=== PATIENT | male | born 1960 | race Caucasian/White ===

== ENCOUNTER 2017-06-01 06:54 | Emergency (ER) | payer OTHER ==
[2017-06-01 07:47] LABS: Absolute Lymphocytes (CBC) 1.2 K/uL (0.7-4.9); Absolute Monocytes 0.3 K/uL (0.1-1.3); Absolute Neutrophil 3.4 K/uL (1.8-8.0); Basophils % 0.6 % (0-1.3); Bicarbonate 27 mEq/L (21-31); Eosinophils % 2.1 % (0-4.4); Glucose Level 132 mg/dL (65-120); Hematocrit 41.9 % (39.6-49.0); Lymphocytes % 23.5 % (15.3-44.8); MCH 31.5 pg (27.0-35.0); MCV 90.9 fL (80-100); MPV 8.6 fL (7.6-11.3); Monocytes % 5.9 % (3.3-12.3); Potassium 4.1 mEq/L (3.6-5.0); Sodium Level 138 mEq/L (135-145)
[2017-06-01 07:50] LABS: BUN Blood Urea Nitrogen 14 mg/dL (6-20); Creatine Phosphokinase 57 IU/L (22-269); Magnesium 2.2 mg/dL (1.8-2.5)
[2017-06-01 07:58] LABS: CKMB Creatine Kinase MB 2.3 ng/ml (0.3-4.0)
[2017-06-01] MEDS ORDERED: NA CHLORIDE 0.9% 1,000 ML ONE (08:23)
--- NOTE | 2017-06-01 08:37 | RAD REPORT ---
EXAM DESCRIPTION: CT - Head Brain Wo Cont - 06/01/2017 7:32 am CLINICAL HISTORY: Headache, hypertension COMPARISON: None. TECHNIQUE: All CT scans are performed using dose optimization technique as appropriate and may inclu de automated exposure control or mA/KV adjustment according to patient size. FINDINGS: No intracranial hemorrhage, hydrocephalus or extra-axial fluid collection.Area of gliosis is noted in the left frontal and medial right frontal lobe is probably related to prior trauma or inf arction. The paranasal sinuses and mastoids are clear. The calvarium is intact. IMPRESSION: No acute intracranial abnormality.
[2017-06-01 08:45] LABS: Urine Blood NEGATIVE (NEG); Urine Glucose NEGATIVE (NEG); Urine Protein NEGATIVE (NEG); Urine Specific Gravity <1.005 (1.005-1.030)
--- NOTE | 2017-06-01 09:15 | ER ---
Nurse's Notes [facility] Name: Erasmo Macias Age: 56 yrs Sex: Male : 1960 Arrival Date: 06/01/2017 Time: 06:57 Bed 8 Private MD: Diagnosis: Medication reaction;Weakness Presentation: 06/01 07:11 Presenting complaint: Patient states: has had numbness all over body and burning to the iw back of neck and back of head X 2 days. Transition of care: patient was not received from another setting of care. Onset of symptoms was May 30, 2017. Care prior to arrival: None. 07:11 Method Of Arrival: Ambulatory iw 07:11 Acuity: DEENA 3 iw Historical: - Allergies: 07:14 NKA; iw - Home Meds: 07:14 methotrexate sodium 2.5 mg Oral tab 1 tab once wkly [Active]; prednisone 5 mg Oral tab iw 1 tab 2 times per day [Active]; celecoxib 200 mg Oral cap 1 cap 2 times per day [Active]; doxazosin 4 mg oral tab 1 tab once daily [Active]; amlodipine 10 mg tab 1 tab once daily [Active]; Enbrel 25 mg/0.5mL (0.51) subcutaneous syrg 1 mL once wkly [Active]; Seroquel 100 mg Oral tab daily [Active]; folic acid 1 mg Oral tab 1 tab once daily [Active]; lisinopril 20 mg Oral tab 1 tab once daily [Active]; - PMHx: 07:14 Hypertension; Rheumatoid Arthritis; iw 07:15 PTSD; iw - PSHx: 07:14 Tonsillectomy; iw - Immunization history:: Adult Immunizations up to date. - Social history:: Smoking status: Patient/guardian denies using tobacco, Patient/guardian denies using alcohol, the patient reports quitting approximately .1 years ago. Screenin:18 Abuse screen: Denies threats or abuse. Denies injuries from another. Nutritional ch screening: No deficits noted. Tuberculosis screening: No symptoms or risk factors identified. Fall Risk None identified. Assessment: 07:18 General: Appears in no apparent distress. comfortable, Behavior is cooperative, ch appropriate for age, anxious. Pain: Denies pain. Neuro: Level of Consciousness is awake, alert, obeys commands, Oriented to person, place, time, situation, Religion Department Chair are equal bilaterally Moves all extremities. Full function Gait is steady, Speech is normal, Facial symmetry appears normal, Facial symmetry: tongue is midline, Pupils are PERRLA, Reports feeling generalized burning and tingling all over. Cardiovascular: Denies chest pain, Capillary refill < 3 seconds in bilateral fingers toes Clubbing of nail beds is absent JVD is absent Patient's skin is warm and dry. Pulses are all present. Edema is absent. Respiratory: No deficits noted. Airway is patent Respiratory effort is even, unlabored, Breath sounds are clear bilaterally. GI: No signs and/or symptoms were reported involving the gastrointestinal system. : No signs and/or symptoms were reported regarding the genitourinary system. Derm: Skin is pink, warm \T\ dry. Musculoskeletal: No signs and/or symptoms reported regarding the musculoskeletal system. Circulation, motion, and sensation intact. 07:29 Reassessment: Patient appears in no apparent distress at this time. Patient and/or ch family updated on plan of care and expected duration. Pain level reassessed. Patient is alert, oriented x 3, equal unlabored respirations, skin warm/dry/pink. 07:58 Reassessment: Patient appears in no apparent distress at this time. pt states he feels ch like something is moving in his peripheral vision, and an increase in tingling and burning since walking to the restroom. pt bp is 88/42. Darling notified, pt bed laid flatter. pt is aaox4, resps even and unlabored, no s/s of distress. pt states he has been told he has an abnormal heart beat. pt is having bigeminy that then becomes sinus lalita. 08:08 Reassessment: Patient appears in no apparent distress at this time. Patient and/or ch family updated on plan of care and expected duration. Pain level reassessed. Patient is alert, oriented x 3, equal unlabored respirations, skin warm/dry/pink. Patient states feeling better. Patient states symptoms have improved. 08:47 Reassessment: Patient appears in no apparent distress at this time. Patient and/or ch family updated on plan of care and expected duration. Pain level reassessed. Patient is alert, oriented x 3, equal unlabored respirations, skin warm/dry/pink. Patient states feeling better. Patient states symptoms have improved. Vital Signs: 07:14 BP 122 / 58; Pulse 50; Resp 18; Temp 97.5; Pulse Ox 97% on R/A; Weight 127.01 kg; iw Height 6 ft. (182.88 cm); Pain 0/10; 07:58 BP 88 / 42; Pulse 42; Resp 14; Pulse Ox 99% on R/A; Pain 0/10; ch 08:08 BP 104 / 58; Pulse 54; Resp 12; Pulse Ox 97% on R/A; ch 08:42 BP 105 / 53 LA Supine (auto/lg); Pulse 48; ch 08:45 BP 109 / 62 LA Sitting (auto/lg); Pulse 52; ch 08:48 BP 112 / 56 LA Standing (auto/lg); Pulse 64; ch 07:14 Body Mass Index 37.97 (127.01 kg, 182.88 cm) iw Vitals: 08:01 Cardiac Rhythm Assessment Sinus lalita. ch ED Course: 06:57 Patient arrived in ED. do 07:06 Darling Gaston FNP-C is PHCP. kb 07:06 Ramin Courtney MD is Attending Physician. kb 07:12 Triage completed. iw 07:14 Arm band placed on. iw 07:15 Jacqueline Monique, RN is Primary Nurse. aa1 07:18 Jackie Del Valle, RN is Primary Nurse. ch 07:18 No apparent distress. Resting quietly. ch 07:18 Patient has correct armband on for positive identification. Bed in low position. Call light in reach. Side rails up X 1. Adult w/ patient. Pulse ox on. NIBP on. Warm blanket given. 07:18 No provider procedures requiring assistance completed. ch 07:30 Inserted saline lock: 18 gauge in right antecubital area, using aseptic technique. Blood collected. 07:31 CT completed. Patient tolerated procedure well. Patient moved to CT via wheelchair. sj Patient moved back from CT. 07:31 CT Head Brain wo Cont Sent. ch 07:32 CT Head Brain wo Cont In Process Unspecified. EDMS 08:11 EKG done, by invasive cardiovascular technologist. reviewed by Darling STAUFFER. vh 09:48 IV discontinued, intact, bleeding controlled, No redness/swelling at site. Pressure iw dressing applied. Administered Medications: 08:00 Drug: NS 0.9% 1000 ml Route: IV; Rate: 1000 ml; Site: right antecubital; ch 08:50 Follow up: IV Status: Completed infusion; IV Intake: 1000ml ch Intake: 08:50 IV: 1000ml; Total: 1000ml. ch Outcome: 09:14 Discharge ordered by . lisbet 09:48 Discharged to home ambulatory, with family. iw 09:48 Condition: good 09:48 Discharge instructions given to patient, Instructed on discharge instructions, follow up and referral plans. Demonstrated understanding of instructions, follow-up care. 09:49 Patient left the ED. iw Signatures: Dispatcher [employer] EDMS Darling Gaston, FORM DRAFTER-C FORM DRAFTER-Ckb Jackie Del Valle, RN RN Jacqueline Monique RN RN Safia Zacarias Irene RN RN Sera Mclean Danielle do
--- NOTE | 2017-06-01 09:15 | EDPHYS ---
Physician Documentation [facility] Name: Erasmo Macias Age: 56 yrs Sex: Male : 1960 Arrival Date: 06/01/2017 Time: 06:57 Bed 8 Private MD: ED Physician Ramin Courtney HPI: 06/01 07:57 This 56 yrs old Male presents to ER via Ambulatory with complaints of kb Numbness, Burning Sensation to Back of Head. 07:57 The patient presents to the emergency department with paresthesias of the scalp and kb neck, numbness all over body. Onset: The symptoms/episode began/occurred 10 day(s) ago. Context: occurred at home. Associated signs and symptoms: Pertinent positives: numbness, paresthesias. Severity of symptoms: At their worst the symptoms were moderate in the emergency department the symptoms have improved. Patient's baseline: Neuro: alert and fully oriented, Motor: no deficits, Ambulation: walks without assistance, Speech: normal. Current symptoms: Currently, the patient is not experiencing any symptoms, the patient feels back to baseline, no decreased level of consciousness, no confusion, no dysphasia, no headache, no paralysis, no visual changes. The patient has not experienced similar symptoms in the past. The patient has not recently seen a physician. Pt states he has had intermittent burning sensation to back of head and neck, as well as, numbness to entire body since last Tuesday. . Historical: - Allergies: 07:14 NKA; iw - Home Meds: 07:14 methotrexate sodium 2.5 mg Oral tab 1 tab once wkly [Active]; prednisone 5 mg Oral tab iw 1 tab 2 times per day [Active]; celecoxib 200 mg Oral cap 1 cap 2 times per day [Active]; doxazosin 4 mg oral tab 1 tab once daily [Active]; amlodipine 10 mg tab 1 tab once daily [Active]; Enbrel 25 mg/0.5mL (0.51) subcutaneous syrg 1 mL once wkly [Active]; Seroquel 100 mg Oral tab daily [Active]; folic acid 1 mg Oral tab 1 tab once daily [Active]; lisinopril 20 mg Oral tab 1 tab once daily [Active]; - PMHx: 07:14 Hypertension; Rheumatoid Arthritis; iw 07:15 PTSD; iw - PSHx: 07:14 Tonsillectomy; iw - Immunization history:: Adult Immunizations up to date. - Social history:: Smoking status: Patient/guardian denies using tobacco, Patient/guardian denies using alcohol, the patient reports quitting approximately .1 years ago. ROS: 07:56 Constitutional: Negative for fever, chills, and weight loss, Eyes: Negative for injury, kb pain, redness, and discharge, ENT: Negative for injury, pain, and discharge, Neck: Negative for injury, pain, and swelling, Cardiovascular: Negative for chest pain, palpitations, and edema, Respiratory: Negative for shortness of breath, cough, wheezing, and pleuritic chest pain, Abdomen/GI: Negative for abdominal pain, nausea, vomiting, diarrhea, and constipation, Back: Negative for injury and pain, MS/Extremity: Negative for injury and deformity, Skin: Negative for injury, rash, and discoloration. 07:56 Neuro: Positive for numbness, paresthesias. Exam: 07:56 Constitutional: This is a well developed, well nourished patient who is awake, alert, kb and in no acute distress. Head/Face: Normocephalic, atraumatic. Eyes: Pupils equal round and reactive to light, extra-ocular motions intact. Lids and lashes normal. Conjunctiva and sclera are non-icteric and not injected. Cornea within normal limits. Periorbital areas with no swelling, redness, or edema. ENT: Nares patent. No nasal discharge, no septal abnormalities noted. Tympanic membranes are normal and external auditory canals are clear. Oropharynx with no redness, swelling, or masses, exudates, or evidence of obstruction, uvula midline. Mucous membranes moist. Neck: Trachea midline, no thyromegaly or masses palpated, and no cervical lymphadenopathy. Supple, full range of motion without nuchal rigidity, or vertebral point tenderness. No Meningismus. Chest/axilla: Normal chest wall appearance and motion. Nontender with no deformity. No lesions are appreciated. Cardiovascular: Regular rate and rhythm with a normal S1 and S2. No gallops, murmurs, or rubs. Normal PMI, no JVD. No pulse deficits. Respiratory: Lungs have equal breath sounds bilaterally, clear to auscultation and percussion. No rales, rhonchi or wheezes noted. No increased work of breathing, no retractions or nasal flaring. Abdomen/GI: Soft, non-tender, with normal bowel sounds. No distension or tympany. No guarding or rebound. No evidence of tenderness throughout. Skin: Warm, dry with normal turgor. Normal color with no rashes, no lesions, and no evidence of cellulitis. MS/ Extremity: Pulses equal, no cyanosis. Neurovascular intact. Full, normal range of motion. Neuro: Awake and alert, GCS 15, oriented to person, place, time, and situation. Cranial nerves II-XII grossly intact. Motor strength 5/5 in all extremities. Sensory grossly intact. Cerebellar exam normal. Normal gait. Vital Signs: 07:14 BP 122 / 58; Pulse 50; Resp 18; Temp 97.5; Pulse Ox 97% on R/A; Weight 127.01 kg; iw Height 6 ft. (182.88 cm); Pain 0/10; 07:58 BP 88 / 42; Pulse 42; Resp 14; Pulse Ox 99% on R/A; Pain 0/10; ch 08:08 BP 104 / 58; Pulse 54; Resp 12; Pulse Ox 97% on R/A; ch 08:42 BP 105 / 53 LA Supine (auto/lg); Pulse 48; ch 08:45 BP 109 / 62 LA Sitting (auto/lg); Pulse 52; ch 08:48 BP 112 / 56 LA Standing (auto/lg); Pulse 64; ch 07:14 Body Mass Index 37.97 (127.01 kg, 182.88 cm) iw MDM: 07:06 Patient medically screened. kb 07:56 Data reviewed: vital signs, nurses notes. Data interpreted: Pulse oximetry: on room air kb is 97 %. Interpretation: normal. 09:10 Counseling: I had a detailed discussion with the patient and/or guardian regarding: the kb historical points, exam findings, and any diagnostic results supporting the discharge/admit diagnosis, lab results, radiology results, the need for outpatient follow up, a family practitioner, to return to the emergency department if symptoms worsen or persist or if there are any questions or concerns that arise at home. ED course: Discussed current medications with pt. States "My doctor told me that if I quit drinking I probably wouldn't need bp meds anymore. I haven't drank in 10 weeks, but am still taking the medicine as prescribed." States he felt fine this morning, but started having the symptoms after taking his bp meds. Educated on decreasing medication, keeping bp log and following up with PCP. Pt has appt with PCP on Tuesday and will discuss medication adjustment. Pt in agreement with plan of care. Will keep appt with PCP and return for worsening symptoms or other concerns. . 06/01 07:17 Order name: Basic Metabolic Panel; Complete Time: 07:59 kb 06/01 07:17 Order name: BNP; Complete Time: 08:18 kb 06/01 07:17 Order name: CBC with Diff; Complete Time: 07:48 kb 06/01 07:17 Order name: Ckmb; Complete Time: 07:59 kb 06/01 07:17 Order name: CPK; Complete Time: 07:59 kb 06/01 07:17 Order name: Magnesium; Complete Time: 07:59 kb 06/01 07:17 Order name: PT-INR; Complete Time: 08:18 kb 06/01 07:17 Order name: Ptt, Activated; Complete Time: 08:18 kb 06/01 07:17 Order name: Troponin (emerg Dept Use Only); Complete Time: 07:56 kb 06/01 07:17 Order name: EKG; Complete Time: 07:18 kb 06/01 07:17 Order name: Cardiac monitoring; Complete Time: 08:51 kb 06/01 07:17 Order name: CT Head Brain wo Cont; Complete Time: 08:41 kb 06/01 07:53 Order name: Urine Dipstick--Ancillary (enter results); Complete Time: 08:50 bd 06/01 07:17 Order name: EKG - Nurse/Tech; Complete Time: 08:51 kb 06/01 07:17 Order name: IV Saline Lock; Complete Time: 07:30 kb 06/01 07:17 Order name: Labs collected and sent; Complete Time: 07:30 kb 06/01 07:17 Order name: O2 Per Protocol; Complete Time: 07:30 kb 06/01 07:17 Order name: O2 Sat Monitoring; Complete Time: 07:30 kb 06/01 07:17 Order name: Urine Dipstick-Ancillary (obtain specimen); Complete Time: 08:51 kb 06/01 08:22 Order name: Orthostatics; Complete Time: 08:50 kb Administered Medications: 08:00 Drug: NS 0.9% 1000 ml Route: IV; Rate: 1000 ml; Site: right antecubital; 08:50 Follow up: IV Status: Completed infusion; IV Intake: 1000ml Disposition: 23:18 Co-signature as Attending Physician, Ramin Courtney MD. rn Disposition: 06/01/17 09:14 Discharged to Home. Impression: Medication reaction, Weakness. - Condition is Stable. - Discharge Instructions: Hypotension, [id number], Weakness, [id number]. - Medication Reconciliation Form, Thank You Letter, Antibiotic Education, Prescription Opioid Use, Work release form form. - Follow up: Emergency Department; When: As needed; Reason: Worsening of condition. Follow up: Private Physician; When: 2 - 3 days; Reason: Recheck today's complaints, Continuance of care, Re-evaluation by your physician. Signatures: Dispatcher [employer] Darling Mcfarland, MEETA-C COMMERCIAL LOAN ANALYST-Jackie Ledesma RN RN Jhoana Way RN RN Ramin Courtney MD MD rn
--- NOTE | 2017-06-01 09:53 | EKG ---
Test Date: 2017-06-01 Test Time: 07:59:05 Divisional Human Resources Director: HUMBERTO MEASUREMENT RESULTS: Intervals: Rate: 44 CA: 166 QRSD: 100 QT: 426 QTc: 364 [place]: P: 49 CA: 166 QRS: 28 T: 48 INTERPRETIVE STATEMENTS: Marked sinus bradycardia with sinus arrhythmia Abnormal ECG Compared to ECG 08/05/2014 19:20:57 Sinus rhythm no longer present Electronically Signed On 06-01-17 09:51:42 CDT by Fracisco Taylor
[2017-06-01 09:55] VITALS: TEMP 97.5
[2017-06-01 09:57] VITALS: O2SAT 97
[2017-06-01 10:03] VITALS: BP 112/56
== END 2017-06-01 09:49 | disposition home or self-care (01) ==
LOC: ER 06:54
DX: T50.991A Poisoning by other drugs, medicaments and biological substances, accidental (unintentional), initial encounter (principal); R53.1 Weakness; I10 Essential (primary) hypertension; F43.10 Post-traumatic stress disorder, unspecified
CPT/HCPCS: 36415; 70450; 80048; 81003; 82550; 82553; 83735; 83880; 84484; 85025; 85610; 85730; 93005; 96360; 99284; J7030